=== PATIENT | male | born 1965 | race Caucasian/White ===

== ENCOUNTER → 2019-06-26 08:52 | Outpatient (CLI) | payer OTHER, SELFPAY ==
--- NOTE | 2019-06-26 | DI.ECHO.S_ITS ---
[facility] +---------+ : : [address] : [address] : : : : [id number] : : : : Phone: [phone] +---------+ Echocardiogram Report + + :Name: KANE RUDOLPH Study Date: 06/26/2019 Height: 73 in : :[facility] Weight: 215 lb: : Gender: Male BSA: 2.2 m2 : :: 1965 Age: 54 yrs : :Reason For Study: DYSPNEA : : Performed By: Adiel Weiner : :Referring: NICOLAS DELUCA : + + Interpretation Summary Normal sinus rhythm. Normal LV size, wall thickness, wall motion and LV systolic function. EF is 50-55%. Normal chamber sizes. No significant valvular abnormalities. No prior study available for comparison. Procedure: A two-dimensional transthoracic echocardiogram with color flow and Doppler was performed. The study quality was technically adequate. There is no prior echocardiogram noted for this patient. The subcostal views were difficult to obtain and are suboptimal in quality. The patient was in normal sinus rhythm during the exam. Left Ventricle: The left ventricle is normal in size. There is normal left ventricular wall thickness. The ejection fraction is estimated to be 50-55%. There are no focal wall motion abnormalities. Right Ventricle: The right ventricle is mildly dilated. The right ventricular systolic function is normal. Atria: Both atria are normal in size. The interatrial septum is intact with no evidence for an atrial septal defect. Mitral Valve: The mitral valve is normal in structure and function. There is trace mitral regurgitation. Aortic Valve: The aortic valve is trileaflet. The aortic valve opens well. No aortic regurgitation is present. Tricuspid Valve: The tricuspid valve is normal in structure and function. No tricuspid regurgitation. Pulmonary artery pressures cannot be estimated because of the lack of a measurable TR jet velocity. Pulmonic Valve: The pulmonic valve is not well seen, but is grossly normal. There is no pulmonic valvular regurgitation. Great Vessels: The aortic root is normal size. The ascending aorta is mildly enlarged. The pulmonary artery is normal size. The inferior vena cava was not well visualized. Pericardium/ Pleura There is no pericardial effusion. There is no pleural effusion. MMode/2D Measurements & Calculations LVIDd: 4.8 cm LVOT diam: 2.3 cm LVIDs: 3.3 cm Ao root diam: 3.6 cm FS: 31.0 % Aortic Jxn: 3.4 cm EPSS: 0.98 cm asc Aorta Diam: 4.0 cm IVSd: 0.73 cm Ao Arch Diam (Prox Trans): 2.8 cm LVPWd: 0.86 cm LV brannon. diameter/BSA (cm/m^2): 2.2 LV sys. diameter/BSA (cm/m^2): 1.5 LA dimension: 2.8 cm RA long axis: 5.0 cm LA A2 area: 21.3 cm2 RA area: 18.9 cm2 LA A4 area: 21.0 cm2 RA vol: 61.1 ml LA length (vol): 5.5 cm RA : 27.5 ml/m2 LA vol: 69.2 ml LA vol index: 31.2 ml/m2 RVD1 (basal): 4.3 cm RVD2 (mid): 4.8 cm TAPSE: 2.0 cm Doppler Measurements & Calculations Ao V2 max: 113.8 cm/sec LVOT Max Allen: 86.8 cm/sec Ao V2 mean: 95.2 cm/sec LV V1 max P.0 mmHg Ao max P.2 mmHg LV V1 VTI: 18.7 cm Ao mean P.6 mmHg AUBREY(I,D): 3.2 cm2 Ao V2 VTI: 24.3 cm AUBREY(V,D): 3.2 cm2 sev ratio: 0.77 AUBREY indexed to BSA (cm^2/m^2): 1.4 MV E max allen: 31.9 cm/sec PA V2 max: 68.2 cm/sec MV A max allen: 51.7 cm/sec PA V2 mean: 50.6 cm/sec MV E/A: 0.62 PA mean P.1 mmHg Med Peak E' Allen: 3.3 cm/sec PA pr(Accel): 34.1 mmHg E/E' med: 9.8 PA Accel Time: 0.10 sec Lat Peak E' Allen: 5.5 cm/sec E/E' lat: 5.8 E/e' average: 7.8 MV dec time: 0.27 sec SV(LVOT): 78.1 ml Electronically signed by: Carolyn Lowe M.D. on Reading Physician:06/27/2019 02:33 AM
== END ==
PROVIDERS: PCP Family Medicine; Visit Provider Internal Medicine Critical Care Medicine
DX: R06.00 Dyspnea, unspecified (principal); I77.89 Other specified disorders of arteries and arterioles
CPT/HCPCS: 93306